=== PATIENT | male | born 1975 | race Two or more races ===

== ENCOUNTER 2022-11-24 12:44 | Inpatient (IN) | payer MEDICAID, OTHER ==
[~2022-11-24] VITALS: Ht 177.8 cm; Wt 90.9 kg
[2022-11-24] VITALS (9 sets, daily range): BP systolic 77–115; BP diastolic 48–84
[~2022-11-24 12:44] MED LIST: ASPI1CHW15; CARV20CA10; DIGO0.2570; ISOSORB MONO; OLME40TA26; [UNRECOGNIZED DRUG - OTHER]
[2022-11-24] MEDS ORDERED: NALOXONE HCL 1MG/ML 2ML SYRINGE ONE (12:48)
[2022-11-24] MEDS ORDERED: ETOMIDATE (2MG/ML) 20ML VIAL IV ONE ×2 (12:50→17:45)
[2022-11-24] MEDS ORDERED: ROCURONIUM 10MG/ML 10ML VIAL IV ONE ×2 (12:50→17:45)
[2022-11-24 13:20] LABS: Basophils # (auto) 0 10 ^3/uL (0-0.2); Basophils % (auto) 0.1 % (0.0-2.0); Eosinophils # (auto) 0 10 ^3/uL (0-0.8); Eosinophils % (auto) 0.1 % (0.0-7.0); Hematocrit 49.2 % (41.0-53.0); Lymphocytes # (auto) 3.9 10 ^3/uL (0.4-5.4); Lymphocytes % (auto) 32.5 % (10.0-50.0); Mean Corpuscular Hemoglobin 29.9 pg (28.0-32.0); Mean Corpuscular Hgb Conc. 34.5 g/dL (32.0-36.0); Mean Corpuscular Volume 86.8 fL (80.0-100.0); Monocytes # (auto) 0.5 10 ^3/uL (0-1.3); Monocytes % (auto) 3.8 % (0.0-12.0); Neutrophils # (auto) 7.5 10 ^3/uL (1.6-8.6); Neutrophils % (auto) 63.5 % (37.0-80.0); Nucleated Red Blood Cells % 0.7 %; Red Blood Cells 5.67 10^6/uL (4.5-5.90); Red Cell Distribution Width 14.1 % (11.8-14.3); White Blood Cell 11.9 10^3/uL (4.4-10.8)
[2022-11-24] MEDS ORDERED: IOHEXOL 300 MG/ML 100ML BOTTLE IJ ONE (13:23)
[2022-11-24] MEDS: PROPOFOL 100 ML IV SCH (13:26)
[2022-11-24 13:43] LABS: Albumin 4.2 g/dL (3.4-5.0); Calcium 9.5 mg/dL (8.5-10.1); Magnesium 2.6 mg/dL (1.6-2.6); Potassium 4.2 mmol/L (3.5-5.1)
[2022-11-24 13:48] LABS: BUN/Creatinine Ratio 15.6 (10.0-20.0); Bilirubin, Total 0.5 mg/dL (0.2-1.0); Total Protein 7.8 g/dL (6.4-8.2)
[2022-11-24] MEDS ORDERED: MIDAZOLAM HCL 2MG/2ML 2ml VIAL (1mg/ml) ONE (13:58)
[2022-11-24] MEDS ORDERED: MIDAZOLAM HCL 2MG/2ML 2ml VIAL (1mg/ml) IV ONE (14:00)
[2022-11-24 14:46] LABS: Urine Bacteria NONE SEEN /hpf (None Seen); Urine Blood Negative /uL (Negative); Urine Specific Gravity 1.009 (1.001-1.035); Urine WBC 1 /hpf (0 - 3)
[2022-11-24 15:27] LABS: Amphetamine Screen, Urine NEGATIVE (NEGATIVE); Barbiturate Scree,Urine NEGATIVE (NEGATIVE); Benzodiazephine Screen, Urine NEGATIVE (NEGATIVE); Cocaine Screen, Urine NEGATIVE (NEGATIVE)
[2022-11-24] MEDS ORDERED: CEFEPIME 1GM/ 50ML 50 ML IV ONE (15:30)
[2022-11-24] MEDS ORDERED: VANCOMYCIN 1GM/250ML 250 ML IV ONE (15:30)
[2022-11-24 15:35] LABS: Cannabinoid Screen, Urine POSITIVE (NEGATIVE); Opiate Scree,Urine NEGATIVE (NEGATIVE); Phencyclidine Screen, Urine NEGATIVE (NEGATIVE)
[2022-11-24] MEDS ORDERED: metroNIDAZOLE 500MG/100ML 100 ML IV ONE (16:15)
[2022-11-24] MEDS: fentaNYL Drip 2500mCg/250mlNS 250 ML IV SCH (19:50)
[2022-11-24] MEDS ORDERED: LISI20TA28 PO (20:41)
[2022-11-24] MEDS ORDERED: METF-371 PO (20:41)
[2022-11-24] MEDS ORDERED: PREG-109 PO (20:41)
[2022-11-24] MEDS ORDERED: ROSU1TAB14 PO (20:41)
[2022-11-24] MEDS ORDERED: CARV6.2551 PO (20:41)
[2022-11-24] MEDS ORDERED: DEXTROSE (50%) 50ML SYRG IV PRN (20:45)
[2022-11-24] MEDS ORDERED: SODIUM CHLORIDE 0.9% 1,000 ML IV SCH (20:45)
[2022-11-24] MEDS ORDERED: NITROGLYCERIN 0.4 MG SL TAB SL PRN (20:45)
[2022-11-24] MEDS ORDERED: ONDANSETRON HCL 4 MG/2 ML VIAL IV PRN (20:45)
[2022-11-24] MEDS ORDERED: MORPHINE SULFATE INJ 2 MG/ml SYRG IV PRN (20:45)
[2022-11-24] MEDS: NOREPINEPHRINE 8 MG/250ML KIT 250 ML IV SCH (21:15)
[2022-11-24] MEDS: ACCU-CHEK COMFORT CURVE STRIP VI SCH (22:25)
[2022-11-24] MEDS: SODIUM CHLORIDE 0.9% 1,000 ML IV SCH (22:44)
[2022-11-24] MEDS: InsuLIN REG 1unit/0.01ml Soln (100units/ml) SC SCH (22:44)
[2022-11-25] VITALS (105 sets, daily range): BP systolic 83–154; BP diastolic 50–88
[2022-11-25] MEDS: PROPOFOL 100 ML IV SCH ×6 (04:13→23:50)
[2022-11-25 04:29] LABS: Albumin 3.4 g/dL (3.4-5.0); Anion Gap 13 (5-15); BUN/Creatinine Ratio 15.1 (10.0-20.0); Blood Urea Nitrogen 11 mg/dL (7-18); Carbon Dioxide 19 mmol/L (21-32); Chloride 116 mmol/L (98-107); GFR African American 147 mL/min; GFR Non-African American 122 mL/min; Glucose 134 mg/dL (74-106); Potassium 3.8 mmol/L (3.5-5.1); Sodium 148 mmol/L (136-145)
[2022-11-25 04:31] LABS: Alanine Aminotransferase 45 U/L (16-61); Alkaline Phosphatase 71 U/L (45-117); Aspartate Aminotransferase 28 U/L (15-37); Bilirubin, Total 0.4 mg/dL (0.2-1.0); Total Protein 7.2 g/dL (6.4-8.2)
[2022-11-25 04:40] LABS: Basophils # (auto) 0.1 10 ^3/uL (0-0.2); Basophils % (auto) 0.2 % (0.0-2.0); Eosinophils # (auto) 0.1 10 ^3/uL (0-0.8); Eosinophils % (auto) 0.4 % (0.0-7.0); Hemoglobin 17.1 g/dL (13.5-17.5); Lymphocytes # (auto) 6.1 10 ^3/uL (0.4-5.4); Lymphocytes % (auto) 26.1 % (10.0-50.0); Mean Corpuscular Hemoglobin 29.6 pg (28.0-32.0); Mean Corpuscular Hgb Conc. 32.8 g/dL (32.0-36.0); Mean Corpuscular Volume 90.2 fL (80.0-100.0); Monocytes # (auto) 1.8 10 ^3/uL (0-1.3); Monocytes % (auto) 7.9 % (0.0-12.0); Neutrophils # (auto) 15.1 10 ^3/uL (1.6-8.6); Neutrophils % (auto) 65.4 % (37.0-80.0); Nucleated Red Blood Cells % 0.1 %; Red Blood Cells 5.77 10^6/uL (4.5-5.90); Red Cell Distribution Width 14.6 % (11.8-14.3); White Blood Cell 23.2 10^3/uL (4.4-10.8)
[2022-11-25] MEDS: InsuLIN REG 1unit/0.01ml Soln (100units/ml) SC SCH ×4 (06:26→21:30)
[2022-11-25] MEDS: ACCU-CHEK COMFORT CURVE STRIP VI SCH ×4 (06:26→21:23)
[2022-11-25] MEDS: SODIUM CHLORIDE 0.9% 1,000 ML IV SCH (08:51)
[2022-11-25] MEDS ORDERED: cefTRIAXone 1GM/50ML D5W 50 ML IV SCH (09:00)
[2022-11-25] MEDS ORDERED: ACETAMINOPHEN 325 MG TAB PO PRN (09:30)
[2022-11-25] MEDS ORDERED: AZITHROMYCIN 500MG/ 250ML 250 ML IV SCH (10:00)
[2022-11-25] MEDS: MIDAZOLAM DRIP 50 mg/50mL 50 ML IV SCH (10:16)
[2022-11-25] MEDS: fentaNYL Drip 2500mCg/250mlNS 250 ML IV SCH ×2 (10:17→21:13)
[2022-11-25] MEDS: PANTOPRAZOLE 40 MG/10 ML VIAL INJ IV SCH (10:21)
[2022-11-25] MEDS: ENOXAPARIN SOD 40 MG/0.4 ML SYRINGE SC SCH (10:21)
[2022-11-25] MEDS: LACTULOSE 20Gm/30ML SOLN PO SCH ×2 (10:23→21:22)
[2022-11-25] MEDS: SOD CHL 0.45% 1,000 ML IV SCH ×2 (10:37→20:31)
[2022-11-25 11:22] LABS: INR 1.09 (0.9-1.15)
[2022-11-25] MEDS: FREE WATER GT SCH ×3 (12:07→23:49)
[2022-11-25] MEDS: PIPERACILLIN-TAZOB 3.375GM 100 ML IV SCH ×3 (12:08→23:49)
[2022-11-25] MEDS ORDERED: LIDOCAINE 1% (LOCAL ANESTH.) PF 5ml SDV ID ONE (14:15)
[2022-11-25] MEDS: FOLIC ACID 1 MG, MULTIPLE VITAMIN 10 ML, MAGNESIUM SULF SDV 50% 8 MEQ, THIAMINE INJ 100... INJ SCH ×5 (14:55)
[2022-11-25] MEDS: NOREPINEPHRINE 8 MG/250ML KIT 250 ML IV SCH (21:15)
[2022-11-25] MEDS: SODIUM CHLOR 0.9% PF (SALINE LOCK) 10ML VIAL/SYR IV SCH (21:22)
[2022-11-26] VITALS (97 sets, daily range): BP systolic 84–191; BP diastolic 34–112
[2022-11-26] MEDS: SOD CHL 0.45% 1,000 ML IV SCH ×3 (03:26→21:26)
[2022-11-26] MEDS: PROPOFOL 100 ML IV SCH ×2 (03:27→07:24)
[2022-11-26 04:39] LABS: Basophils # (auto) 0.3 10 ^3/uL (0-0.2); Eosinophils # (auto) 0.4 10 ^3/uL (0-0.8); Eosinophils % (auto) 3.3 % (0.0-7.0); Hematocrit 40.5 % (41.0-53.0); Hemoglobin 13.9 g/dL (13.5-17.5); Lymphocytes # (auto) 4.3 10 ^3/uL (0.4-5.4); Lymphocytes % (auto) 33.1 % (10.0-50.0); Mean Corpuscular Hemoglobin 29.7 pg (28.0-32.0); Mean Corpuscular Hgb Conc. 34.3 g/dL (32.0-36.0); Mean Corpuscular Volume 86.6 fL (80.0-100.0); Monocytes % (auto) 7.7 % (0.0-12.0); Neutrophils # (auto) 7.1 10 ^3/uL (1.6-8.6); Neutrophils % (auto) 53.9 % (37.0-80.0); Nucleated Red Blood Cells % 0.1 %; Red Blood Cells 4.68 10^6/uL (4.5-5.90); Red Cell Distribution Width 14.6 % (11.8-14.3); White Blood Cell 13.1 10^3/uL (4.4-10.8)
[2022-11-26 05:19] LABS: Albumin 2.7 g/dL (3.4-5.0); Calcium 7.9 mg/dL (8.5-10.1); Potassium 3.7 mmol/L (3.5-5.1)
[2022-11-26 05:25] LABS: BUN/Creatinine Ratio 21.6 (10.0-20.0); Bilirubin, Total 0.9 mg/dL (0.2-1.0); Total Protein 5.5 g/dL (6.4-8.2)
[2022-11-26] MEDS: ACCU-CHEK COMFORT CURVE STRIP VI SCH ×4 (06:39→21:25)
[2022-11-26] MEDS: PIPERACILLIN-TAZOB 3.375GM 100 ML IV SCH ×4 (06:39→23:35)
[2022-11-26] MEDS: FREE WATER GT SCH ×4 (06:39→23:05)
[2022-11-26] MEDS: InsuLIN REG 1unit/0.01ml Soln (100units/ml) SC SCH ×4 (06:40→21:26)
[2022-11-26] MEDS: ENOXAPARIN SOD 40 MG/0.4 ML SYRINGE SC SCH (09:34)
[2022-11-26] MEDS: LACTULOSE 20Gm/30ML SOLN PO SCH (09:34)
[2022-11-26] MEDS: PANTOPRAZOLE 40 MG/10 ML VIAL INJ IV SCH (09:34)
[2022-11-26] MEDS: SODIUM CHLOR 0.9% PF (SALINE LOCK) 10ML VIAL/SYR IV SCH ×2 (09:34→21:25)
[2022-11-26] MEDS: MIDAZOLAM DRIP 50 mg/50mL 50 ML IV SCH (09:45)
[2022-11-26] MEDS: FOLIC ACID 1 MG, MULTIPLE VITAMIN 10 ML, MAGNESIUM SULF SDV 50% 8 MEQ, THIAMINE INJ 100... INJ SCH ×5 (13:10)
[2022-11-26] MEDS ORDERED: METOPROLOL SUCCINATE XL 50 MG TAB PO ONE (14:00)
[2022-11-26] MEDS ORDERED: MAGNESIUM SULFATE 1GM/100ML 100 ML IV ONE (14:00)
[2022-11-26] MEDS: POTASSIUM CHL 20MEQ/100ML 100 ML IV SCH ×2 (15:55→18:25)
[2022-11-26] MEDS: LABETALOL HCL 5 MG/ML 4ML SYRINGE IV PRN (19:07)
[2022-11-26] MEDS: NOREPINEPHRINE 8 MG/250ML KIT 250 ML IV SCH (19:57)
[2022-11-27] VITALS (41 sets, daily range): BP systolic 129–186; BP diastolic 75–114
[2022-11-27 01:35] LABS: BUN/Creatinine Ratio 7.5 (10.0-20.0); Calcium 8.6 mg/dL (8.5-10.1); Magnesium 2.1 mg/dL (1.6-2.6); Potassium 3.5 mmol/L (3.5-5.1)
[2022-11-27 02:07] LABS: Basophils # (auto) 0.1 10 ^3/uL (0-0.2); Basophils % (auto) 0.6 % (0.0-2.0); Eosinophils # (auto) 0.3 10 ^3/uL (0-0.8); Eosinophils % (auto) 2.1 % (0.0-7.0); Hematocrit 42.4 % (41.0-53.0); Hemoglobin 14.8 g/dL (13.5-17.5); Lymphocytes # (auto) 3.3 10 ^3/uL (0.4-5.4); Lymphocytes % (auto) 25.1 % (10.0-50.0); Mean Corpuscular Hemoglobin 30.1 pg (28.0-32.0); Monocytes # (auto) 1.1 10 ^3/uL (0-1.3); Monocytes % (auto) 8.3 % (0.0-12.0); Neutrophils # (auto) 8.3 10 ^3/uL (1.6-8.6); Neutrophils % (auto) 63.9 % (37.0-80.0); Nucleated Red Blood Cells % 0.1 %; Red Blood Cells 4.93 10^6/uL (4.5-5.90)
[2022-11-27] MEDS: LABETALOL HCL 5 MG/ML 4ML SYRINGE IV PRN ×3 (03:13→21:35)
[2022-11-27] MEDS: FREE WATER GT SCH (05:22)
[2022-11-27] MEDS: PIPERACILLIN-TAZOB 3.375GM 100 ML IV SCH ×3 (06:24→18:30)
[2022-11-27] MEDS: InsuLIN REG 1unit/0.01ml Soln (100units/ml) SC SCH ×4 (06:25→21:46)
[2022-11-27] MEDS: ACCU-CHEK COMFORT CURVE STRIP VI SCH ×4 (06:25→21:42)
[2022-11-27] MEDS ORDERED: METOPROLOL SUCCINATE XL 50 MG TAB PO SCH (10:00)
[2022-11-27] MEDS: SODIUM CHLOR 0.9% PF (SALINE LOCK) 10ML VIAL/SYR IV SCH ×2 (10:13→21:41)
[2022-11-27] MEDS: ASPirin 81 mg TAB PO SCH (10:26)
[2022-11-27] MEDS: THIAMINE HCL 100 MG TAB PO SCH (10:27)
[2022-11-27] MEDS: METOPROLOL SUCCINATE XL 50 MG TAB PO SCH (10:27)
[2022-11-27] MEDS: ENOXAPARIN SOD 40 MG/0.4 ML SYRINGE SC SCH (10:27)
[2022-11-27] MEDS: MULTIPLE VITAMIN TAB PO SCH (10:29)
[2022-11-27] MEDS ORDERED: ONDANSETRON HCL 4 MG/2 ML VIAL IV PRN (12:00)
[2022-11-27] MEDS ORDERED: ACETAMINOPHEN 500 MG TAB PO PRN (12:00)
[2022-11-27] MEDS: MORPHINE SULFATE INJ 2 MG/ml SYRG IV PRN ×3 (12:33→21:38)
[2022-11-27] MEDS: HYDROcodone-ACET 5/325MG TAB PO PRN (15:32)
[2022-11-27] MEDS ORDERED: ATORVASTATIN 20 MG TAB PO SCH (22:00)
[2022-11-28] VITALS (8 sets, daily range): BP systolic 137–156; BP diastolic 91–104
[2022-11-28] MEDS: PIPERACILLIN-TAZOB 3.375GM 100 ML IV SCH ×2 (00:09→06:05)
[2022-11-28] MEDS: HYDROcodone-ACET 5/325MG TAB PO PRN ×3 (00:12→12:14)
[2022-11-28] MEDS: MORPHINE SULFATE INJ 2 MG/ml SYRG IV PRN ×2 (04:46→09:34)
[2022-11-28] MEDS: InsuLIN REG 1unit/0.01ml Soln (100units/ml) SC SCH (06:10)
[2022-11-28] MEDS: ACCU-CHEK COMFORT CURVE STRIP VI SCH (06:10)
[2022-11-28] MEDS ORDERED: DOXY-340 PO (06:52)
[2022-11-28] MEDS: METOPROLOL SUCCINATE XL 50 MG TAB PO SCH (09:32)
[2022-11-28] MEDS: ASPirin 81 mg TAB PO SCH (09:32)
[2022-11-28] MEDS: THIAMINE HCL 100 MG TAB PO SCH (09:32)
[2022-11-28] MEDS: ENOXAPARIN SOD 40 MG/0.4 ML SYRINGE SC SCH (09:32)
[2022-11-28] MEDS: SODIUM CHLOR 0.9% PF (SALINE LOCK) 10ML VIAL/SYR IV SCH (09:36)
[2022-11-28] MEDS: MULTIPLE VITAMIN TAB PO SCH (09:41)
== END 2022-11-28 12:47 | disposition home or self-care (01) | DRG 871 ==
LOC: ER 12:44 → EDUNIT# 12:44 → EDBD 12:44 → ICU WEST 20:35
PROVIDERS: ADMIT Nurse Practitioner Family; ATTEND Nurse Practitioner Acute Care
PROC: 5A1945Z Respiratory Ventilation, 24-96 Consecutive Hours (ICD-10-PCS; principal; 2022-11-24)
PROC: 0BH17EZ Insertion of Endotracheal Airway into Trachea, Via Natural or Artificial Opening (ICD-10-PCS; 2022-11-24)
PROC: 02H633Z Insertion of Infusion Device into Right Atrium, Percutaneous Approach (ICD-10-PCS; 2022-11-25)
DX: A41.9 Sepsis, unspecified organism (principal); G92.8 Other toxic encephalopathy; R65.21 Severe sepsis with septic shock; J96.01 Acute respiratory failure with hypoxia; J69.0 Pneumonitis due to inhalation of food and vomit; E11.9 Type 2 diabetes mellitus without complications; F10.229 Alcohol dependence with intoxication, unspecified; I10 Essential (primary) hypertension; J45.909 Unspecified asthma, uncomplicated; K74.60 Unspecified cirrhosis of liver; I25.2 Old myocardial infarction; Z86.73 Personal history of transient ischemic attack (TIA), and cerebral infarction without residual deficits; Z80.0 Family history of malignant neoplasm of digestive organs; Z82.49 Family history of ischemic heart disease and other diseases of the circulatory system
CPT/HCPCS: 31500; 36415; 36569; 36600; 70450; 71045; 71260; 74177; 80048; 80053; 80307; 80320; 80329; 81001; 82140; 82805; 82962; 83735; 83880; 83930; 83935; 84484; 85025; 85610; 87040; 87070; 87081; 87205; 93005; 93306; 94002; 94003; 96361; 96365; 96366; 96372; 96375; C9113; G0378; J0696; J1815; J2250; J2543; J2704; J3480; J3490; J7060

== ENCOUNTER 2023-01-31 20:46 | Emergency (ER) | payer OTHER | END 2023-01-31 21:00 | disposition left against medical advice (07) | LOC: ER 20:50 | DX: R00.2 Palpitations (principal); Z53.21 Procedure and treatment not carried out due to patient leaving prior to being seen by health care provider | CPT/HCPCS: 93005 ==

== ENCOUNTER 2023-01-31 23:54 | Inpatient (IN) | payer OTHER ==
[~2023-01-31] VITALS: Ht 167.6 cm; Wt 86.4 kg
[2023-02-01] MEDS ORDERED: amLODIPine BESYLATE 5 MG TAB PO ONE (00:45)
[2023-02-01 01:02] LABS: Basophils # (auto) 0.1 10 ^3/uL (0-0.2); Basophils % (auto) 0.6 % (0.0-2.0); Eosinophils # (auto) 0 10 ^3/uL (0-0.8); Hematocrit 49.3 % (41.0-53.0); Hemoglobin 17.1 g/dL (13.5-17.5); Lymphocytes # (auto) 1.9 10 ^3/uL (0.4-5.4); Lymphocytes % (auto) 8.4 % (10.0-50.0); Mean Corpuscular Hemoglobin 30.4 pg (28.0-32.0); Mean Corpuscular Hgb Conc. 34.7 g/dL (32.0-36.0); Mean Corpuscular Volume 87.5 fL (80.0-100.0); Monocytes # (auto) 1.5 10 ^3/uL (0-1.3); Monocytes % (auto) 6.6 % (0.0-12.0); Neutrophils # (auto) 19.2 10 ^3/uL (1.6-8.6); Neutrophils % (auto) 84.4 % (37.0-80.0); Red Blood Cells 5.63 10^6/uL (4.5-5.90); Red Cell Distribution Width 16.3 % (11.8-14.3); White Blood Cell 22.8 10^3/uL (4.4-10.8)
[2023-02-01 01:17] LABS: Albumin 4.3 g/dL (3.4-5.0); Anion Gap 11 (5-15); Blood Urea Nitrogen 19 mg/dL (7-18); Calcium 9.3 mg/dL (8.5-10.1); Carbon Dioxide 23 mmol/L (21-32); Chloride 107 mmol/L (98-107); Glucose 209 mg/dL (74-106); Potassium 3.7 mmol/L (3.5-5.1); Sodium 141 mmol/L (136-145)
[2023-02-01 01:19] LABS: Alanine Aminotransferase 72 U/L (16-61); Aspartate Aminotransferase 39 U/L (15-37); BUN/Creatinine Ratio 15.8 (10.0-20.0); GFR African American 83 mL/min; GFR Non-African American 69 mL/min
[2023-02-01 01:22] LABS: Alkaline Phosphatase 82 U/L (45-117); Bilirubin, Total 1.9 mg/dL (0.2-1.0); Total Protein 8.1 g/dL (6.4-8.2)
[2023-02-01 01:25] LABS: Blood Alcohol < 3.0 mg/dL (0-5)
[2023-02-01] MEDS ORDERED: cefTRIAXone 1GM/50ML D5W 50 ML IV ONE (05:30)
[2023-02-01] MEDS ORDERED: AZITHROMYCIN 500MG/ 250ML 250 ML IV ONE (05:30)
[2023-02-01] MEDS ORDERED: SODIUM CHLORIDE 0.9% 500 ML IV ONE (05:45)
[2023-02-01] MEDS ORDERED: chlordiazePOXIDE HCL 25 MG CAP PO ONE (05:45)
[2023-02-01] MEDS ORDERED: ENOXAPARIN SOD 100 MG/1 ML SYRINGE SC ONE (06:15)
[2023-02-01] MEDS ORDERED: NITROGLYCERIN 0.4 MG SL TAB SL PRN (06:15)
[2023-02-01] MEDS ORDERED: DEXTROSE (50%) 50ML SYRG IV PRN (06:15)
[2023-02-01] MEDS ORDERED: ASPirin 81 mg TAB PO ONE (06:15)
[2023-02-01] MEDS ORDERED: MORPHINE SULFATE INJ 2 MG/ml SYRG IV PRN (06:15)
[2023-02-01] MEDS ORDERED: ONDANSETRON HCL 4 MG/2 ML VIAL IV PRN (06:15)
[2023-02-01 06:40] LABS: Urine Bacteria FEW /hpf (None Seen); Urine Blood 1+ /uL (Negative); Urine Sperm PRESENT /hpf (None Seen); Urine WBC 1 /hpf (0 - 3)
[2023-02-01 06:46] LABS: Alcohol, Urine < 3.0 mg/dL (0-10); Amphetamine Screen, Urine POSITIVE (NEGATIVE); Barbiturate Scree,Urine NEGATIVE (NEGATIVE); Benzodiazephine Screen, Urine NEGATIVE (NEGATIVE); Cannabinoid Screen, Urine POSITIVE (NEGATIVE)
[2023-02-01] MEDS: InsuLIN REG 1unit/0.01ml Soln (100units/ml) SC SCH ×4 (06:49→23:02)
[2023-02-01] MEDS: ACCU-CHEK COMFORT CURVE STRIP VI SCH ×4 (06:49→22:58)
[2023-02-01 06:50] LABS: Urine Specific Gravity > 1.050 (1.001-1.035)
[2023-02-01 06:55] LABS: Cocaine Screen, Urine NEGATIVE (NEGATIVE); Opiate Scree,Urine NEGATIVE (NEGATIVE); Phencyclidine Screen, Urine NEGATIVE (NEGATIVE)
[2023-02-01] MEDS ORDERED: LORazepam 2MG/ML-1ML VIAL IV ONE (08:45)
[2023-02-01] MEDS ORDERED: ADENOSINE 73 MG in GIVE UN-DILUTED 0 ML IV ONE (09:30)
[2023-02-01] MEDS: SODIUM CHLORIDE 0.9% 1,000 ML IV SCH ×2 (09:31→19:00)
[2023-02-01] MEDS ORDERED: CARVEDILOL 3.125 MG TAB PO SCH (10:00)
[2023-02-01] MEDS ORDERED: LISINOPRIL 20 MG TAB PO SCH (10:00)
[2023-02-01] MEDS ORDERED: PANTOPRAZOLE 40 MG TAB PO SCH (10:00)
[2023-02-01] MEDS ORDERED: MAGNESIUM SULFATE 1GM/100ML 100 ML IV ONE (10:30)
[2023-02-01 10:53] LABS: Cholesterol 140 mg/dL (< 200)
[2023-02-01 10:56] LABS: HDL Cholesterol 52 mg/dL (40-59); LDL Cholesterol 85 mg/dL (< 100); Triglycerides 133 mg/dL (< 150)
[2023-02-01] MEDS: LABETALOL HCL 5 MG/ML 4ML SYRINGE IV PRN ×2 (16:22→21:15)
[2023-02-01] MEDS ORDERED: LABETALOL HCL 5 MG/ML 4ML SYRINGE IV ONE (18:15)
[2023-02-01] MEDS ORDERED: METOPROLOL TARTRATE 50 MG TAB PO SCH (22:00)
[2023-02-01] MEDS ORDERED: ATORVASTATIN 20 MG TAB PO SCH (22:00)
[2023-02-01] MEDS: chlordiazePOXIDE HCL 25 MG CAP PO PRN (22:25)
[2023-02-02] MEDS ORDERED: hydrALAZINE HCL 20 MG/ML VL IV PRN (01:15)
[2023-02-02] MEDS ORDERED: CARVEDILOL 3.125 MG TAB PO ONE (01:15)
[2023-02-02] MEDS ORDERED: LORazepam 2MG/ML-1ML VIAL IV ONE (03:30)
[2023-02-02] MEDS: LABETALOL HCL 5 MG/ML 4ML SYRINGE IV PRN (03:53)
[2023-02-02 04:00] VITALS: BP 170/92
[2023-02-02] MEDS: chlordiazePOXIDE HCL 25 MG CAP PO PRN (04:18)
[2023-02-02] MEDS: SODIUM CHLORIDE 0.9% 1,000 ML IV SCH (04:27)
[2023-02-02] MEDS ORDERED: ENOXAPARIN SOD 80 MG/0.8ML SYRINGE SC SCH (06:00)
[2023-02-02] MEDS ORDERED: cefTRIAXone 1GM/50ML D5W 50 ML IV SCH (09:00)
== END 2023-02-02 04:34 | disposition left against medical advice (07) | DRG 281 ==
LOC: ER 23:54 → TELE 02-01 06:21
PROVIDERS: ADMIT Nurse Practitioner; ATTEND Internal Medicine
DX: R00.2 Palpitations (principal); I21.A1 Myocardial infarction type 2; R65.10 Systemic inflammatory response syndrome (SIRS) of non-infectious origin without acute organ dysfunction; F10.229 Alcohol dependence with intoxication, unspecified; F15.10 Other stimulant abuse, uncomplicated; E11.9 Type 2 diabetes mellitus without complications; E66.9 Obesity, unspecified; I10 Essential (primary) hypertension; F17.210 Nicotine dependence, cigarettes, uncomplicated; Z53.29 Procedure and treatment not carried out because of patient's decision for other reasons; Z80.0 Family history of malignant neoplasm of digestive organs; Z82.49 Family history of ischemic heart disease and other diseases of the circulatory system; Z86.73 Personal history of transient ischemic attack (TIA), and cerebral infarction without residual deficits; Z68.30 Body mass index [BMI] 30.0-30.9, adult
CPT/HCPCS: 36415; 71045; 71275; 78452; 80053; 80061; 80307; 80320; 81001; 82962; 83036; 83880; 84443; 84484; 85025; 87040; 93005; 93017; G0378; J0153; J0696; J1815; J3490

== ENCOUNTER → 2023-01-31 | Emergency (ER) | payer OTHER ==
[~2023-01-31] VITALS: Ht 167.6 cm; Wt 100.0 kg
[~2023-01-31] MED LIST changes: -ASPI1CHW15; -CARV20CA10; +CARV6.2551 PO; -DIGO0.2570; +DOXY1CAP57 PO; -ISOSORB MONO; +LISI20TA56 PO; +METF-371 PO; -OLME40TA26; +PREG-109 PO; +ROSU1TAB14 PO; -[UNRECOGNIZED DRUG - OTHER]
[2023-01-31 19:07] VITALS: BP 180/90
== END | disposition left against medical advice (07) ==
LOC: EDUNIT# 18:41 → EDBD 18:53 → ER 19:00
DX: I10 Essential (primary) hypertension (principal); R00.0 Tachycardia, unspecified; R61 Generalized hyperhidrosis; Z53.21 Procedure and treatment not carried out due to patient leaving prior to being seen by health care provider
CPT/HCPCS: 71045; 93005